=== PATIENT | male | born 1980 | race Two or more races ===

== ENCOUNTER 2017-06-01 18:12 | Emergency (ER) | payer BC, OTHER ==
[~2017-06-01] VITALS: Ht 177.8 cm; Wt 92.0 kg
[2017-06-01 18:17] VITALS: Ht 177.8 cm; Wt 92.0 kg
[2017-06-01] MEDS ORDERED: ASPIRIN 325 MG TAB PO STA (19:58)
[2017-06-01] MEDS ORDERED: LORAZEPAM 2 MG INJ IM STA (19:58)
[2017-06-01] MEDS ORDERED: LORAZEPAM 2 MG INJ IV STA (19:59)
--- NOTE | 2017-06-01 20:51 | RADRPT ---
PROCEDURE: XR Chest. CLINICAL INDICATION: Chest pain. TECHNIQUE: Single frontal chest x-ray. COMPARISON: None available. FINDINGS: The cardiomediastinal silhouette is unremarkable. No pneumothorax, pleural effusion or consolidation is seen. No acute osseous abnormality is noted. IMPRESSION: 1. No acute cardiopulmonary abnormality. RPTAT: HH .Tabitha Hope MD, Date Time Electronically viewed and signed by .Tabitha Hope MD, on 06/01/2017 20:50 .N/
[2017-06-01 20:55] LABS: BASOPHIL # 0.1 10^3/ul (0.0-0.1); BASOPHILS % 0.8 % (0.0-2.0); EOSINOPHILS # 0.1 10^3/ul (0.0-0.5); EOSINOPHILS % 1.9 % (0.0-7.0); HEMATOCRIT 45.5 % (42.0-52.0); HEMOGLOBIN 15.2 g/dl (14.0-18.0); LYMPHOCYTES # 2.9 10^3/ul (0.8-2.9); LYMPHOCYTES % 46.4 % (15.0-51.0); MEAN CORPUSCULAR HEMOGLOBIN 27.8 pg (29.0-33.0); MEAN CORPUSCULAR HGB CONC 33.4 g/dl (32.0-37.0); MEAN CORPUSCULAR VOLUME 83.2 fl (82.0-101.0); MEAN PLATELET VOLUME 10.7 fl (7.4-10.4); MONOCYTE # 0.6 10^3/ul (0.3-0.9); MONOCYTES % 9.3 % (0.0-11.0); NEUTROPHIL # 2.6 10^3/ul (1.6-7.5); NEUTROPHILS % 41.4 % (39.0-77.0); PLATELET COUNT 260 10^3/UL (140-415); RED BLOOD COUNT 5.47 10^6/ul (4.70-6.10); RED CELL DISTRIBUTION WIDTH 13.3 % (11.5-14.5); WHITE BLOOD COUNT 6.2 10^3/ul (4.8-10.8)
[2017-06-01] MEDS ORDERED: SOD CHLORIDE 0.9% 1,000 ML IV STA (20:57)
[2017-06-01] MEDS ORDERED: LORAZEPAM 2 MG INJ IV ONE (21:30)
[2017-06-01 21:32] LABS: ALANINE AMINOTRANSFERASE 44 IU/L (13-69); ALBUMIN 4.8 g/dl (3.3-4.9); ALBUMIN/GLOBULIN RATIO 1.33; ALKALINE PHOSPHATASE 53 IU/L (42-121); ANION GAP 22 (8-16); ASPARTATE AMINO TRANSFERASE 31 IU/L (15-46); BILIRUBIN,INDIRECT 0.3 mg/dl (0-1.1); BILIRUBIN,TOTAL 0.3 mg/dl (0.2-1.3); BLOOD UREA NITROGEN 11 mg/dl (7-20); CARBON DIOXIDE 22 mmol/L (21-31); CHLORIDE 102 mmol/L (97-110); CREATININE 0.83 mg/dl (0.61-1.24); GLUCOSE 88 mg/dl (70-220); POTASSIUM 4.3 mmol/L (3.5-5.1); SODIUM 142 mmol/L (135-144); TOTAL PROTEIN 8.4 g/dl (6.1-8.1)
[2017-06-01 22:09] LABS: TROPONIN-I < 0.012 ng/ml (0.00-0.12)
[2017-06-01] MEDS ORDERED: DIAZEPAM 5 MG/ML SYG IV STA (22:26)
--- NOTE | 2017-06-01 23:10 | ERD ---
ER Documentation Chief Complaint Date/Time DATE: 06/01/17 TIME: 23:06 Chief Complaint chest pain x 10 min ago, anxious HPI This is a 37-year-old male with a history of anxiety presenting to the emergency department complaining of chest pain locating it midsternal radiating to his neck within 30 minutes prior to being seen. Patient rates the pain 10 out of 10. He also admits to having palpitations. He denies any shortness of breath. Patient states that in the past that has not happened before and he has taken Xanax and Valium. Patient denies any heart conditions. Denies any drug use. ROS All systems reviewed and are negative except as per history of present illness. Medications Home Meds No Active Prescriptions or Reported Meds Allergies Allergies: Coded Allergies: No Known Allergy (Unverified , 10/02/14) PMhx/Soc History of Surgery: No Anesthesia Reaction: No Hx Neurological Disorder: No Hx Respiratory Disorders: No Hx Cardiac Disorders: No Hx Psychiatric Problems: No Hx Miscellaneous Medical Probl: No Hx Alcohol Use: Yes Hx Substance Use: No Hx Tobacco Use: No Smoking Status: Never smoker Physical Exam Vitals Vital Signs Date Time Temp Pulse Resp B/P Pulse Ox O2 Delivery O2 Flow Rate FiO2 06/01/17 18:17 98.1 120 26 168/90 100 Physical Exam GENERAL: no acute distress, non-toxic appearing, sitting up in bed HENT: normocephalic/atraumatic EYES: conjunctiva is normal NECK: no noticeable or palpable swelling, no carotid bruits, no JVD CARDIOVASCULAR: Tachycardic, regular rhythm, good S1S2, no murmurs or gallops heard PULM: clear to auscultation, no use of accessory muscles, no crackles or wheezes. ABDOMEN: normal bowel sounds, abdomen soft and nontender EXT: no edema, cyanosis or clubbing MUSCULOSKELETAL: 5/5 strength, normal range of motion, no swollen or erythematous joints. NEURO: alert and oriented SKIN: no rashes, skin warm and dry, no erythematous areas PSYCH: normal mood and mentation, denies suicidal or homicidal ideation and thoughts Result Diagram: 06/01/17201906/01/172019 Results 24 hrs Laboratory Tests Test 06/01/17 20:20 White Blood Count 6.210^3/ul Red Blood Count 5.4710^6/ul Hemoglobin 15.2g/dl Hematocrit 45.5% Mean Corpuscular Volume 83.2fl Mean Corpuscular Hemoglobin 27.8pg Mean Corpuscular Hemoglobin Concent 33.4g/dl Red Cell Distribution Width 13.3% Platelet Count 68858^3/UL Mean Platelet Volume 10.7fl Neutrophils % 41.4% Lymphocytes % 46.4% Monocytes % 9.3% Eosinophils % 1.9% Basophils % 0.8% Nucleated Red Blood Cells % 0.0/100WBC Neutrophils # 2.610^3/ul Lymphocytes # 2.910^3/ul Monocytes # 0.610^3/ul Eosinophils # 0.110^3/ul Basophils # 0.110^3/ul Nucleated Red Blood Cells # 0.010^3/ul Sodium Level 142mmol/L Potassium Level 4.3mmol/L Chloride Level 102mmol/L Carbon Dioxide Level 22mmol/L Anion Gap 22 Blood Urea Nitrogen 11mg/dl Creatinine 0.83mg/dl Glucose Level 88mg/dl Calcium Level 10.0mg/dl Total Bilirubin 0.3mg/dl Direct Bilirubin 0.00mg/dl Indirect Bilirubin 0.3mg/dl Aspartate Amino Transf (AST/SGOT) 31IU/L Alanine Aminotransferase (ALT/SGPT) 44IU/L Alkaline Phosphatase 53IU/L Troponin I < 0.012ng/ml Total Protein 8.4g/dl Albumin 4.8g/dl Globulin 3.60g/dl Albumin/Globulin Ratio 1.33 Current Medications Medications (Trade) Dose Ordered Sig/Fam Route PRN Reason Start Time Stop Time Status Last Admin Dose Admin Aspirin (Aspirin) 325 mg ONCE STAT PO 06/01/17 19:58 06/01/17 20:01 DC 06/01/17 20:26 Lorazepam (Ativan) 1 mg ONCE STAT IM 06/01/17 19:58 06/01/17 20:01 DC Lorazepam 1 mg 1 mg ONCE STAT IV 06/01/17 19:59 06/01/17 20:01 DC 06/01/17 20:27 Sodium Chloride (NS) 1,000 ml @ 1,000 mls/hr Q1H STAT IV 06/01/17 20:57 06/01/17 21:56 DC 06/01/17 21:05 Lorazepam (Ativan) 1 mg ONCE ONCE IV 06/01/17 21:30 06/01/17 21:31 DC 06/01/17 21:21 Diazepam (Valium) 5 mg ONCE STAT IV 06/01/17 22:26 06/01/17 22:27 DC 06/01/17 22:52 Procedures/MDM This is a 37-year-old male presenting to the emergency department with chest pain and anxiety. Chest pain is likely related to his anxiety. I have a low suspicion for ACS, pulmonary embolism, or other acute pulmonary conditions. Patient has a low heart score. He stable to be discharged home to follow-up with his primary care physician tomorrow. Discussed return to the ER for any worsening symptoms. Understands and agrees with this plan IV access established, patient was given 1 L fluids. He was given 2 mg of Ativan and 5 mg of Valium IV. There was no evidence of leukocytosis or anemia. Troponin was negative. Patient has a low heart score therefore a repeat troponin is not unnecessary at this time. An EKG was done did not show any evidence of STEMI chest x-ray did not show any evidence of infiltrates, pneumothorax or pleural effusion. EKG: read and signed off by myself and Rate/Rhythm: [102bpm] QRS, ST, T-waves: [No changes consistent w/ acute ischemia] Impression: [No evidence of ischemia or arrhythmia] Departure Diagnosis: Primary Impression: Chest pain Additional Impression: Anxiety Condition: Stable Patient Instructions: Your Body's Response to Anxiety, Chest Pain, Uncertain Cause Additional Instructions: FOLLOW UP WITH YOUR PRIMARY CARE PHYSICIAN TOMORROW.Return to this facility if you are not improving as expected. Return to this facility if you are not improving as expected. VINICIUS WELLINGTON PA-C Jun 01, 2017 23:09
[2017-06-01 23:20] VITALS: BP 137/97; PULSE 86; RESP 16
== END 2017-06-01 23:21 | disposition home or self-care (01) ==
LOC: FTE 18:12
DX: R07.9 Chest pain, unspecified (principal); F41.9 Anxiety disorder, unspecified
CPT/HCPCS: 71010; 80053; 84484; 85025; 93005; 96374; 96375; 96376; 99285; J2060; J3360; J7030